=== PATIENT | female | born 1975 | race Caucasian/White ===

== ENCOUNTER 2020-02-15 18:39 | Inpatient (IN) | payer OTHER ==
[~2020-02-15] VITALS: Ht 162.6 cm; Wt 92.5 kg
== END 2020-02-26 12:54 | disposition home or self-care (01) | DRG 446 ==
LOC: ER 18:39 → SEC-K 02-16 07:35 → SURG 02-16 08:00
PROVIDERS: ADMIT Surgery; ATTEND Surgery
PROC: BW21ZZZ Computerized Tomography (CT Scan) of Abdomen and Pelvis (ICD-10-PCS; 2020-02-16)
PROC: BW40ZZZ Ultrasonography of Abdomen (ICD-10-PCS; 2020-02-16)
PROC: 05HY33Z Insertion of Infusion Device into Upper Vein, Percutaneous Approach (ICD-10-PCS; principal; 2020-02-19)
PROC: BW40ZZZ Ultrasonography of Abdomen (ICD-10-PCS; 2020-02-20)
PROC: BW38ZZZ Magnetic Resonance Imaging (MRI) of Head (ICD-10-PCS; 2020-02-20)
PROC: 0FJB8ZZ Inspection of Hepatobiliary Duct, Via Natural or Artificial Opening Endoscopic (ICD-10-PCS; 2020-02-21)
PROC: 0FJD8ZZ Inspection of Pancreatic Duct, Via Natural or Artificial Opening Endoscopic (ICD-10-PCS; 2020-02-21)
PROC: 0F9430Z Drainage of Gallbladder with Drainage Device, Percutaneous Approach (ICD-10-PCS; 2020-02-23)
DX: K80.00 Calculus of gallbladder with acute cholecystitis without obstruction (principal); G44.039 Episodic paroxysmal hemicrania, not intractable
CPT/HCPCS: 70553

== ENCOUNTER 2020-03-24 08:29 | Outpatient (CLI) | payer OTHER | END 2020-03-24 08:38 | disposition home or self-care (01) | LOC: RX STUDY 08:29 | PROVIDERS: ATTEND Surgery | DX: K80.00 Calculus of gallbladder with acute cholecystitis without obstruction (principal) ==

== ENCOUNTER 2021-01-26 08:46 | Emergency (ER) | payer OTHER ==
[~2021-01-26] VITALS: Ht 162.6 cm; Wt 90.7 kg
[2021-01-26] MEDS ORDERED: VICTOZA 2-0.6 MG/0.1 SQ (08:54)
[2021-01-26] MEDS ORDERED: MILLIPRED5 MG PO (08:54)
[2021-01-26] MEDS ORDERED: QSYMIA 7.5 MG-1 EACH PO (08:54)
[2021-01-26] MEDS ORDERED: DIALYVITE 800-1 EACH PO (08:55)
[2021-01-26] MEDS ORDERED: HUMIRA(CF)40 MG/0.4 SQ (08:56)
[2021-01-26] MEDS ORDERED: METHOTREXA25 MG/1 M5 SUBCUTANEO (08:56)
== END 2021-01-26 12:54 | disposition home or self-care (01) ==
LOC: ER 08:46
DX: R10.32 Left lower quadrant pain (principal)